=== PATIENT | female | born 1995 | race Caucasian/White ===

== ENCOUNTER 2019-04-01 14:49 | Emergency (ER) | payer OTHER ==
[2019-04-01] MEDS ORDERED: Dexamethasone 10 MG/ML VIAL ONE (15:58)
[2019-04-01] MEDS ORDERED: diphenhydrAMINE 25 MG CAP ONE (15:58)
== END 2019-04-01 16:09 | disposition home or self-care (01) ==
LOC: ERS 14:49
DX: L50.0 Allergic urticaria (principal)
CPT/HCPCS: 99282; J1100; Q0163